=== PATIENT | female | born 1985 | race Caucasian/White ===

== ENCOUNTER 2022-09-06 07:00 | Day surgery (SDC) | payer OTHER, MEDICAID ==
[~2022-09-06] VITALS: Ht 167.6 cm; Wt 97.7 kg
[~2022-09-06 07:00] MED LIST: GLYCOTROL CAPS1 EACH PO; OSTERA TABLET1 EACH PO; VIT C-ROSE HIP500 MG PO
--- NOTE | 2022-09-06 11:25 | NUR ---
09/06/22 Lewis5 Yvette Bradley 1118-PATIENT ARRIVED TO PACU ON 6L MASK RR EVEN. PATIENT NONAROUSABLE. IVF INFUSING. SR. 3 LAP SITES TO ABDOMEN CDI WITH STERI STRIPS. KINCAID CATHETER DRAINING CLEAR YELLOW URINE. NEW GOWN PLACED ON PATIENT. PAWAN PAD PLACED BENEATH PATIENT NO DRAINAGE.
--- NOTE | 2022-09-06 12:17 | NUR ---
1200-PATIENT BACK TO ROOM FROM PACU ON RA. RECEIVED REPORT FROM RAJI DOMINGUEZ. PATIENT IS DROWSY, LAYING IN BED WITH EYES CLOSED. RESP EVEN AND UNLABORED. RATES PAIN 4/10 AND THIS IS TOLERABLE. SOME NAUSEA. UMBILICAL INCISION WITH A SMALL AMOUNT OF DRAINAGE. PAWAN PAD CLEAN, DRY, AND INTACT. HAS PILLOW TO SPLINT WITH. DECLINES WATER AND SNACK AT THIS TIME. MOUTH SWABS GIVEN. CALL LIGHT WITHIN REACH.
--- NOTE | 2022-09-06 12:36 | NUR ---
PATIENT'S NAUSEA STABLE. TAKING IN SIPS OF WATER. DROWSY, BUT ANSWERS QUESTIONS. RATES PAIN 4.5/10. MOTHER AT BEDSIDE.
[2022-09-06] MEDS ORDERED: HYDROCODON-ACE1 EA10 PO (12:52)
[2022-09-06] MEDS ORDERED: IBUPROFEN800 MG PO (12:53)
[2022-09-06] MEDS ORDERED: 8 HOUR650 MG PO (12:54)
--- NOTE | 2022-09-06 13:27 | NUR ---
1310: PATIENT SLEEPING. AWAKENED FOR HOURLY CHECK. NO NEEDS AT THIS TIME. MOTHER AT BEDSIDE. CALL LIGHT WITHIN REACH.
--- NOTE | 2022-09-06 15:15 | NUR ---
1350: PATIENT PUT [employer] LIGHT REQUESTING EXTRA PILLOW FOR POSITIONING. PILLOW GIVEN. PATIENT MORE AWAKE. TOLERATING WATER. GIVEN SALTINE CRACKERS. STATES NAUSEA MUCH IMPROVED. 1405: TOLERATED SALTINE CRACKERS. MEDICATED FOR PAIN WITH 1 TAB OF NORCO. KINCAID CATHETER DC'D. PATIENT TOLERATED KINCAID DC WELL. WATER REFILLED. MOTHER AT BEDSIDE. CALL LIGHT WITHN REACH. 1435: PATIENT ASSISTED OOB AND TO BATHROOM. VOID WITHOUT DIFFICULTY. GAIT STEADY TO AND FROM BATHROOM. PATIENT SITTING ON EDGE OF BED. MOTHER IN ROOM ASSISTING PATIENT TO GET DRESSED. 1500: DISCHARGE INSTRUCTIONS GIVEN TO PATIENT AND MOTHER. PATIENT TIRED. WISHES TO REST BEFORE BEING DISCHARGED. MOTHER IN ROOM WITH PATIENT. CALL LIGHT WITHIN REACH.
--- NOTE | 2022-09-06 16:22 | NUR ---
1530: PATIENT STATES READY TO BE DISCHARGED. UMBILICAL SITE REINFORCED WITH 2X2 GUAZE AND A LARGE BANDAID. VS CHECKED. 1545: IV DC'D WNL. TIP INTACT. DRESSING APPLIED. 1605: PATIENT DISCHARGED TO HOME VIA WHEELCHAIR WITH MOTHER.
--- NOTE | 2022-09-10 17:22 | PATH ---
[facility] [address], [place] [address] Signed SPECIMEN(S): A UTERUS, CERVIX, BILAT TUBES, RT OVARY SPECIMEN SOURCE: A. UTERUS, CERVIX, BILAT TUBES, RT OVARY CLINICAL HISTORY: AUB, right ovarian mass. FINAL PATHOLOGIC DIAGNOSIS: Uterus, cervix, bilateral tubes and right ovary: - Benign proliferative endometrium, negative for hyperplasia or atypia. - Benign endocervix and ectocervix. - Benign right ovary, negative for atypical features or evidence of neoplasia. - Right ovary contains incidental hemorrhagic corpus luteum and corpora albicans. - Negative for atypical features within the right ovary. - Bilateral benign oviducts with incidental benign paratubal serous cysts. JVR:[id number] MICROSCOPIC EXAMINATION: Histologic sections of all submitted blocks are examined by light microscopy. These findings, together with the gross examination, support the pathologic diagnosis. GROSS DESCRIPTION: The specimen, labeled and designated "Alexis, uterus, cervix, bilateral fallopian tubes and right ovary," is received in formalin and consists of uterus and cervix with fallopian tubes and right ovary. The uterus measures 5.5 cm cornu to cornu, 4.5 cm anterior to posterior and 7.5 cm superior to inferior. The serosal surface is pink-shay, smooth. The uterus weighed 137 g. The ectocervix is pink-shay, smooth with areas of roughening around cervical canal. It measures 4.7 x 4.2 cm. Sectioning through the cervix reveals a pink-shay homogenous tissue. The endometrial cavity measures 3.2 x 2.8 cm. It is lined with pink-red, shaggy endometrium. Sectioning through the myometrium reveals pink-shay homogenous tissue. No masses are grossly identified. The myometrium measures 2.2 cm in thickness. The endometrium measures up to 0.2 cm in thickness. Both fallopian tubes show fimbria and the violaceous and smooth serosa. The PATIENT NAME: JOHNNY ESPINOZA PATHOLOGY DATE OF : 81 REPORT #: [id number] PHYSICIAN: JOSHUA PATHOLOGY PCP: OTHER PCP REPORT IS CONFIDENTIAL AND NOT TO BE RELEASED WITHOUT AUTHORIZATION [facility] [address], [place] [address] Signed right fallopian tube is attached to the right ovary and measures 3.5 cm in length and 0.7 cm in diameter. It shows a paratubal cyst that measures 0.6 cm in diameter. The cyst is filled with a clear fluid. The right ovary measures 3.5 x 2.0 x 1.2 cm. The serosal surface is pink-shay, smooth. Sectioning through the ovary is unremarkable. The left fallopian tube measures 3.7 cm in length and 0.7 cm in diameter. It shows a paratubal cyst that measures 1.2 cm in greatest dimension. The cyst is filled with a clear fluid. Sectioning through both fallopian tubes is grossly unremarkable. Customer Service Teller sections are submitted. Cassette Summary: (A1) Cervix, outside sales representative insurance sections, posterior inked (A2) Endomyometrium, outside sales representative insurance sections (A3) Right fallopian tube, outside sales representative insurance sections (A4) Right ovary, outside sales representative insurance sections (A5) Left fallopian tube, outside sales representative insurance sections JS (under the direct supervision of a pathologist) The Gross Description was prepared using a voice recognition system. The report was reviewed for accuracy; however, sound-alike word errors, addition and/or deletions may occur. If there is any question about this report, please contact Client Services. PERFORMING LABORATORY: The technical component was performed by [facility], [address] [place] [id number] (CLIA# [id number]). Professional interpretation was performed by [facility], [address] [place] [id number] (CLIA#: [id number]). Diagnostician: Juancho Rodgers MD Pathologist Electronically Signed 09/10/2022 Copies: ~ PATIENT NAME: ALEXISJOHNNY Fitzpatrick PATHOLOGY DATE OF : 81 REPORT #: [id number] PHYSICIAN: JOSHUA LANGLEY PCP: OTHER PCP REPORT IS CONFIDENTIAL AND NOT TO BE RELEASED WITHOUT AUTHORIZATION
== END 2022-09-06 16:05 | disposition home or self-care (01) ==
LOC: OPS 07:00 → DS 07:00 → OPS 07:30
PROVIDERS: ATTEND Obstetrics & Gynecology
PROC: 0UT94ZZ Resection of Uterus, Percutaneous Endoscopic Approach (ICD-10-PCS; principal; 2022-09-06 08:30)
PROC: 0UT04ZZ Resection of Right Ovary, Percutaneous Endoscopic Approach (ICD-10-PCS; 2022-09-06 08:30)
PROC: 0UT74ZZ Resection of Bilateral Fallopian Tubes, Percutaneous Endoscopic Approach (ICD-10-PCS; 2022-09-06 08:30)
DX: N80.03 Adenomyosis of the uterus (principal); N83.8 Other noninflammatory disorders of ovary, fallopian tube and broad ligament; E03.8 Other specified hypothyroidism; Z98.51 Tubal ligation status; N83.11 Corpus luteum cyst of right ovary; N93.9 Abnormal uterine and vaginal bleeding, unspecified
CPT/HCPCS: 00840; J0131; J0690; J1100; J1885; J2001; J2405; J2704; J3010; J7121; U0003